=== PATIENT | male | born 1980 | race Caucasian/White ===

== ENCOUNTER 2019-06-29 18:49 | Observation (INO) ==
[2019-06-29] MEDS ORDERED: Aspirin 81 MG TAB.CHEW PO ONE (19:00)
[2019-06-29] MEDS ORDERED: Nitroglycerin 0.4 MG TAB.SUBL SL ONE (19:14)
[2019-06-29] MEDS: Nitroglycerin 0.4 MG TAB.SUBL SL PRN ×2 (19:15→19:32)
[2019-06-29 19:21] LABS: Basophils # 0.1 K/mcL (0.0-0.2); Basophils % 0.9 %; Eosinophils # 0.1 K/mcL (0.0-0.6); Eosinophils % 1.1 %; Hematocrit 50.7 % (37.5-50.1); Hemoglobin 18.2 g/dL (12.9-16.9); Immature Granulocytes % 0.2 % (0-4); Lymphocytes # 1.7 K/mcL (0.6-4.6); Lymphocytes % 31.4 %; Mean Corpuscular HGB Conc 35.9 g/dL (31.6-35.5); Mean Corpuscular Hemoglobin 30.8 pg (28.0-33.3); Mean Corpuscular Volume 85.9 fL (83.0-100.0); Monocytes # 0.5 K/mcL (0.0-1.3); Monocytes % 9.5 %; Platelet Count 166 K/mcL (140-400); Red Cell Distribution Width 13.1 % (11.5-14.5); Segmented Neutrophils % 56.9 %; White Blood Count 5.3 K/mcL (4.3-11.1)
[2019-06-29 19:26] LABS: INR 1.1; Prothrombin Time 12.6 Seconds (9.4-12.1)
[2019-06-29 19:28] LABS: Activated Partial Thrombo Time 31.6 Seconds (26.0-36.0)
[2019-06-29 19:40] LABS: BUN/Creatinine Ratio 16 (6-26); Blood Urea Nitrogen 16 mg/dL (6-20); Calcium 9.4 mg/dL (8.6-10.3); Carbon Dioxide 30 mEq/L (23-29); Chloride 100 mEq/L (98-107); Glucose 136 mg/dL (70-105); Osmolality,Calculated 291 (280-300); Potassium 3.5 mEq/L (3.5-5.1); Sodium 139 mEq/L (136-145); eGFR For African Americans > 60 (> 60); eGFR For Non-African Americans > 60 (> 60)
[2019-06-29 19:43] LABS: Troponin I < 0.03 ng/mL (< 0.04)
[2019-06-29] MEDS ORDERED: 0.9 % Sodium Chloride 1,000 ML IVC ONE (19:47)
[2019-06-29] MEDS ORDERED: *HR* LORazepam 2 MG/ML VIAL IVP ONE (20:02)
[2019-06-29] MEDS ORDERED: Naloxone 0.4 MG/ML INJ IVP PRN (22:56)
[2019-06-29] MEDS ORDERED: Acetaminophen 325 MG TABLET PO PRN (23:04)
[2019-06-30] MEDS ORDERED: *HR* Heparin 5,000 UNIT/ML VIAL SQ SCH (06:00)
[2019-06-30] MEDS: Nitroglycerin 0.4 MG TAB.SUBL SL PRN ×2 (06:24→06:29)
[2019-06-30] MEDS ORDERED: Morphine Sulfate 2 MG/ML SYRINGE IVP PRN (06:38)
[2019-06-30 07:10] LABS: Hematocrit 46.7 % (37.5-50.1); Hemoglobin 16.8 g/dL (12.9-16.9); Mean Corpuscular Volume 86.2 fL (83.0-100.0); Mean Platelet Volume 11.1 fL (9.4-12.4); Platelet Count 166 K/mcL (140-400); Red Blood Count 5.42 M/mcL (4.19-5.50); Red Cell Distribution Width 13.3 % (11.5-14.5)
[2019-06-30 07:35] LABS: BUN/Creatinine Ratio 13 (6-26); Blood Urea Nitrogen 16 mg/dL (6-20); Calcium 8.7 mg/dL (8.6-10.3); Carbon Dioxide 24 mEq/L (23-29); Chloride 107 mEq/L (98-107); Glucose 109 mg/dL (70-105); Osmolality,Calculated 292 (280-300); Potassium 3.7 mEq/L (3.5-5.1); Sodium 140 mEq/L (136-145); Troponin I < 0.03 ng/mL (< 0.04); eGFR For African Americans > 60 (> 60); eGFR For Non-African Americans > 60 (> 60)
[2019-06-30 07:50] VITALS: BP 154/92
[2019-06-30] MEDS ORDERED: Regadenoson 0.4 MG/5 ML SYRINGE IVP ONE (08:41)
[2019-06-30] MEDS ORDERED: Aspirin 81 MG TAB.CHEW PO SCH (09:00)
[2019-06-30] MEDS ORDERED: amLODIPine 5 MG TABLET PO ONE (14:31)
== END 2019-06-30 16:18 | disposition home or self-care (01) ==
LOC: 2NENU 18:49 → EMEROOARM 18:49 → 2NENU 21:37
PROVIDERS: ADMIT Internal Medicine; ATTEND Internal Medicine